=== PATIENT | female | born 1980 | race American Indian/Alaskan Native ===

== ENCOUNTER 2020-10-28 23:52 | Emergency (ER) | payer SELFPAY ==
--- NOTE | 2020-10-29 | Event Note ---
ED Screening Note Date of service: 10/28/20 Time: 23:58 ED Screening Note: pt is a 40 y/o aam with hx of hyperthyoidism, on synthroid, states cp and palpitations x 2 days, hx of same, pt states n/v today, no fever no chills, no back pain, no diaphoresis , palpitations worse today rated at 6/10 , there are no relieving or factors. This initial assessment/diagnostic orders/clinical plan/treatment(s) is/are subject to change based on patients health status, clinical progression and re-assessment by fellow clinical providers in the ED. Further treatment and workup at subsequent clinical providers discretion. Patient/guardian urged not to elope from the ED as their condition may be serious if not clinically assessed and managed. Initial orders include:
[2020-10-29 00:12] LABS: Basophils % (Auto) 0.8 % (0.0-1.8); Eosinophils # (Auto) 0.1 K/mm3 (0.0-0.4); Eosinophils % (Auto) 2.1 % (0.0-4.3); Hematocrit 39.8 % (30.3-42.9); Hemoglobin 13.7 gm/dl (10.1-14.3); Lymphocytes # (Auto) 2.2 K/mm3 (1.2-5.4); Lymphocytes % (Auto) 42.8 % (13.4-35.0); Mean Corpuscular HGB Conc 34 % (30-34); Mean Corpuscular Volume 93 fl (79-97); Monocytes # (Auto) 0.3 K/mm3 (0.0-0.8); Monocytes % (Auto) 6.5 % (0.0-7.3); Platelet Count 271 K/mm3 (140-440); Red Blood Count 4.28 M/mm3 (3.65-5.03); Red Cell Distribution Width 14.2 % (13.2-15.2)
[2020-10-29 00:49] LABS: Bacteria,Urine 2+ /HPF (Negative); Bilirubin,Urine NEG (Negative); Blood,Urine SM (Negative); Color,Urine Yellow (Yellow); HCG Qualitative,Urine Negative (Negative); Mucus,Urine 2+ /HPF; Protein,Urine <15 mg/dL mg/dL (Negative); Urobilinogen,Urine < 2.0 mg/dL (<2.0)
[2020-10-29 00:54] LABS: Amphetamine Screen,Urine PRESUMPTIVE NEGATIVE; Benzodiazepines Screen,Urine PRESUMPTIVE NEGATIVE; Cannabinoid Screen,Urine PRESUMPTIVE NEGATIVE; Cocaine Screen,Urine PRESUMPTIVE NEGATIVE; Methadone Screen,Urine PRESUMPTIVE NEGATIVE; Opiate Screen,Urine PRESUMPTIVE NEGATIVE
[2020-10-29 00:58] LABS: Alanine Aminotransferase 9 units/L (7-56); Albumin 3.8 g/dL (3.9-5); BUN/Creatinine Ratio 15; Blood Urea Nitrogen 12 mg/dL (7-17); Calcium 8.8 mg/dL (8.4-10.2); Hemolysis Index 3
--- NOTE | 2020-10-29 01:09 | Emergency Department Report ---
ED Palpitations HPI - General Chief Complaint: Arrhythmia/Palpitations Stated Complaint: HEART RACING/FEELING FAINT/SHAKING/HEADACHE Time Seen by Provider: 10/29/20 00:45 Source: patient Mode of arrival: Ambulatory Limitations: No Limitations - History of Present Illness Initial Comments: Patient is a 40-year-old female that presents emergency room with complaints of palpitations and racing heartbeat. Patient states this started today. Patient states she has been having this for about 4 months intermittently. Patient states she was seen at a hospital 3 months ago and was referred to a mobile unit assistant. Patient states she went to the mobile unit assistant and they did a Holter monitor and the Holter monitor was negative. Patient states the cardiology wor k-up was negative and normal. Patient states that she is on propanolol for her high blood pressure. Patient states she is compliant with her thyroid medication. Patient denies chest pain or shortness of breath. Patient states she has not had any further palpitations since being in the acute room in the ER. Patient states she had a few in the waiting room but none since being back in the acute area of the ER. Patient denies recent travel. Patient denies recent international travel. Neeta ent denies exposure to the novel coronavirus. Patient denies sick contacts. Patient denies fever and chills. Patient denies cough. Patient denies diarrhea. Patient denies coming in contact with anybody with symptoms of the novel coronavirus. Complaint: "heart racing", palpitations -: Sudden - Related Data Allergies Allergy/AdvReac Type Severity Reaction Status Date / Time No Known Allergies Allergy Unverified 10/29/20 00:08 ED Review of Systems ROS: Stated complaint: HEART RACING/FEELING FAINT/SHAKING/HEADACHE Other details as noted in HPI Constitutional: denies: chills, fever Eyes: denies: eye pain, eye discharge, vision change ENT: denies: ear pain, throat pain Respiratory: denies: cough, shortness of breath, wheezing Cardiovascular: as per HPI, palpitations. denies: chest pain Endocrine: no symptoms reported Gastrointestinal: denies: abdominal pain, nausea, diarrhea Genitourinary: denies: urgency, dysuria, discharge Musculoskeletal: denies: back pain, joint swelling, arthralgia Skin: denies: rash, lesions Neurological: denies: headache, weakness, paresthesias Psychiatric: denies: anxiety, depression Hematological/Lymphatic: denies: easy bleeding, easy bruising ED Past Medical Hx - Past Medical History Previous Medical History?: Yes Hx Hypertension: Yes Additional medical history: Hyporhtyroidism - Surgical History Past Surgical History?: Yes Hx Cholecystectomy: Yes Additional Surgical History: Polyps removed - Family History Family history: no significant - Social History Smoking Status: Never Smoker Substance Use Type: None ED Physical Exam - General Limitations: No Limitations General appearance: alert, in no apparent distress - Head Head exam: Present: atraumatic, normocephalic - Eye Eye exam: Present: normal appearance - ENT ENT exam: Present: mucous membranes moist - Neck Neck exam: Present: normal inspection - Respiratory Respiratory exam: Present: normal lung sounds bilaterally. Absent: respiratory distress - Cardiovascular Cardiovascular Exam: Present: regular rate, normal rhythm. Absent: systolic murmur, diastolic murmur, rubs, gallop - GI/Abdominal GI/Abdominal exam: Present: soft, normal bowel sounds - Extremities Exam Extremities exam: Present: normal inspection - Back Exam Back exam: Present: normal inspection - Neurological Exam Neurological exam: Present: alert, oriented X3 - Psychiatric Psychiatric exam: Present: normal affect, normal mood - Skin Skin exam: Present: warm, dry, intact, normal color. Absent: rash ED Course Vital Signs 10/29/20 00:09 Temperature 98.0 F Pulse Rate 94 H Respiratory 18 Rate Blood Pressure 175/109 O2 Sat by Pulse 97 Oximetry - Reevaluation(s) Reevaluation #1: I discussed all results and clinical findings with patient. I discussed plan of care with patient. Patient agrees with plan of care. Patient is stable for discharge. Patient will be discharged home. Patient given discharge instructions. Patient voiced understanding of discharge instructions. 10/29/20 01:48 ED Medical Decision Making - Lab Data Result diagrams: 10/29/20 00:01 10/29/20 00:01 - EKG Data -: EKG Interpreted by Me EKG shows normal: sinus rhythm, axis, intervals, QRS complexes, ST-T waves Rate: normal - Radiology Data Radiology results: report reviewed, image reviewed interpreted by me: Chest x-ray: No pneumonia, no pneumothorax, no foreign body, no osseous findings, no acute findings - Medical Decision Making Patient is a 40-year-old female that presents emergency room with complaints of palpitations and racing heart. Patient's symptoms have resolved while resting in the ER room. Patient had an EKG which was negative for acute findings. Patient's EKG shows no ST changes and was reviewed by me. Patient had a chest x-ray was normal and negative for acute findings. Patient's chest x-ray was reviewed by me. Patient had one which showed an elevated TSH. Patient has a history of hypothyroidism which is being managed by her primary care. Patient referred back to her primary care for further management of her hypothyroidism. Patient to continue her thyroid medication. Patient is stable for discharge. Patient discharged home. - Differential Diagnosis Palpitations, electrolyte imbalance, hypothyroidism, flutter Critical care attestation.: If time is entered above; I have spent that time in minutes in the direct care of this critically ill patient, excluding procedure time. ED Disposition Clinical Impression: Heart palpitations Hypothyroidism Qualifiers: Hypothyroidism type: acquired Qualified Code(s): E03.9 - Hypothyroidism, unspecified Disposition: TO HOME OR SELFCARE Is pt being admited?: No Does the pt Need Aspirin: No Condition: Stable Instructions: Hypothyroidism, Palpitations, Ambulatory Cardiac Monitoring Additional Instructions: Patient to follow-up with primary care in 2 to 3 days. Patient to follow-up with mobile unit assistant in 2 to 3 days. Patient to rest. Patient to increase water. Patient to avoid strenuous exercise or heavy lifting until cleared by mobile unit assistant. Patient to take Tylenol or ibuprofen as needed for pain. Patient to continue all medications. Patient to monitor blood pressure at home. Patient is to do a event log. Patient to keep a blood pressure log. Patient take event log and blood pressure log to all follow-ups. Patient to return to the ER if condition worsens, changes or new symptoms arise. Referrals: DAYDAY MEDINA MD [Primary Care Provider] - 2-3 Days YOAN CHOI MD [Staff Physician] - 2-3 Days Time of Disposition: 01:52
--- NOTE | 2020-10-29 01:36 | XRay Report ---
CHEST 2 VIEWS INDICATION / CLINICAL INFORMATION: palpitations. COMPARISON: None available. FINDINGS: SUPPORT DEVICES: None. HEART / MEDIASTINUM: No significant abnormality. LUNGS / PLEURA: No significant pulmonary or pleural abnormality. No pneumothorax. ADDITIONAL FINDINGS: No significant additional findings. IMPRESSION: 1. No acute findings. Signer Name: Isauro Coto MD Signed: 10/29/2020 1:32 AM Workstation Name: [id number]
[2020-10-29 02:01] VITALS: BP 138/83
== END 2020-10-29 02:18 | disposition home or self-care (01) ==
LOC: ED 23:52
DX: R00.2 Palpitations (principal); E03.9 Hypothyroidism, unspecified; I11.0 Hypertensive heart disease with heart failure; Z90.49 Acquired absence of other specified parts of digestive tract
CPT/HCPCS: 36415; 71046; 80053; 80307; 81001; 81025; 84443; 84484; 85025; 93005